=== PATIENT | male | born 1935 | race Caucasian/White ===

== ENCOUNTER 2022-09-01 05:35 | Inpatient (IN) ==
[2022-09-01] MEDS ORDERED: Buffered Lidocaine 1% SYRIN 1 ml INTRADERM ONE (06:00)
[2022-09-01] MEDS ORDERED: Famotidine IV 10 MG/ML 2 ml VIAL (20 mg) IV ONE (06:00)
[2022-09-01] MEDS ORDERED: Lactated Ringers 1000 ml BAG 1,000 ML IV SCH (06:00)
[2022-09-01] MEDS ORDERED: ceFAZolin 2 GM in NS PREMIX 2 GM/100 ML BAG IVPB ONE (06:28)
[2022-09-01] MEDS ORDERED: Famotidine IV 10 MG/ML 2 ml VIAL (20 mg) ONE (06:28)
[2022-09-01] MEDS ORDERED: Propofol 10 MG/ML 20 ML BTL ONE ×2 (06:32→08:05)
[2022-09-01] MEDS ORDERED: Lidocaine 2% PF 5 ML VIAL ONE ×2 (06:33→07:07)
[2022-09-01] MEDS ORDERED: fentaNYL 100 mcg/2 ml 50 MCG/ML VIAL ONE (06:33)
[2022-09-01 06:48] LABS: Rapid COVID-19 Molecular Undetected (Undetected)
[2022-09-01] MEDS ORDERED: Bupivacaine 0.5% SDV PF 30ML VIAL ONE (07:07)
[2022-09-01] MEDS ORDERED: Naloxone 0.4 mg VIAL 0.4 mg/ml 1 ml VIAL IV PRN (07:29)
[2022-09-01] MEDS ORDERED: fentaNYL 100 mcg/2 ml 50 MCG/ML VIAL IV PRN (07:29)
[2022-09-01] MEDS ORDERED: HYDROcodone/ACETAMIN 5/325 mg TAB PO PRN (07:29)
[2022-09-01] MEDS ORDERED: Ketamine HCL 50 mg/ml 10 ml VIAL (500 MG) ONE (07:46)
[2022-09-01] MEDS ORDERED: Ondansetron 4 mg VIAL 2 MG/ML 2 ml VIAL ONE (07:46)
[2022-09-01] MEDS ORDERED: Magnesium Hydroxide LIQ 30 ML UDC PO PRN (08:23)
[2022-09-01] MEDS ORDERED: Ondansetron ODT 4 mg TAB 4 MG TAB PO PRN (08:23)
[2022-09-01] MEDS ORDERED: Ondansetron 4 mg VIAL 2 MG/ML 2 ml VIAL IV PRN (08:23)
[2022-09-01] MEDS ORDERED: Lactulose 30 ml UDC PO PRN (08:23)
[2022-09-01] MEDS: Lactated Ringers 1000 ml BAG 1,000 ML IV SCH (10:34)
[2022-09-01] MEDS: Magnesium Hydroxide LIQ 30 ML UDC PO SCH ×2 (11:30→22:20)
[2022-09-01] MEDS: Vitamin THERAPEUTIC TAB PO SCH (11:30)
[2022-09-01] MEDS ORDERED: Dextrose 50% Syringe 50 ml 25 GM/50 ML SYRINGE IV PUSH PRN (11:31)
[2022-09-01] MEDS ORDERED: Vancomycin per Pharmacy 1 EA NOTE FOLLOW UP PRN (14:37)
[2022-09-01] MEDS ORDERED: Vancomycin 1,250 MG in NS 0.9% 250 ml 250 ML IVPB ONE (15:00)
[2022-09-01 15:16] LABS: Creatinine, Serum 1.18 mg/dL (0.67-1.17); eGFR CKD-EPI 60.1 (>60)
[2022-09-02] MEDS: Lactated Ringers 1000 ml BAG 1,000 ML IV SCH (02:06)
[2022-09-02 07:05] LABS: Hematocrit 31.2 % (38-53); Hemoglobin 10.5 g/dL (13.2-16.3); Mean Corpuscular Hemoglobin 30.9 pg (27-33); Mean Corpuscular Hgb Conc 33.8 g/dL (31-36); Mean Corpuscular Volume 91.6 fL (80-97); Mean Platelet Volume 7.9 fL (7.5-11.2); Platelet Count 240 10^3/uL (150-450); Red Blood Count 3.41 10^6/uL (4.06-5.63); Red Cell Distribution Width 13.8 % (12-17); White Blood Count 7.2 10^3/uL (3.6-10.2)
[2022-09-02 07:22] LABS: Calcium 8.5 mg/dL (8.6-10.3); Creatinine, Serum 1.05 mg/dL (0.67-1.17); Potassium 4.7 mmol/L (3.5-5.0); eGFR CKD-EPI 69.1 (>60)
[2022-09-02] MEDS: Vancomycin 1,250 MG in NS 0.9% 250 ml 250 ML IVPB SCH (08:45)
[2022-09-02] MEDS: Magnesium Hydroxide LIQ 30 ML UDC PO SCH ×2 (08:46→21:19)
[2022-09-02] MEDS: Vitamin THERAPEUTIC TAB PO SCH (08:47)
[2022-09-02] MEDS: Insulin ISOPH/REG 70/30 SUBCUT SCH ×2 (11:00→21:35)
[2022-09-03 07:07] LABS: Calcium 8.8 mg/dL (8.6-10.3); Creatinine, Serum 0.98 mg/dL (0.67-1.17); Potassium 4.7 mmol/L (3.5-5.0); eGFR CKD-EPI 75.1 (>60)
[2022-09-03] MEDS: Vitamin THERAPEUTIC TAB PO SCH (08:29)
[2022-09-03] MEDS: Insulin ISOPH/REG 70/30 SUBCUT SCH ×2 (08:30→21:31)
[2022-09-03] MEDS: Magnesium Hydroxide LIQ 30 ML UDC PO SCH ×2 (08:31→21:36)
[2022-09-03] MEDS: Vancomycin 1,250 MG in NS 0.9% 250 ml 250 ML IVPB SCH (08:34)
[2022-09-04] MEDS ORDERED: Vancomycin Trough Check NOTE FOLLOW UP ONE (08:30)
[2022-09-04 08:34] LABS: ABS Basophils 0.1 10^3/uL (0.0-0.1); ABS Eosinophils 0.3 10^3/uL (0.0-0.5); ABS Lymphocytes 1.3 10^3/uL (1.0-4.8); ABS Monocytes 0.9 10^3/uL (0.0-1.1); ABS Nucleated RBC 0.01 10^3/ul; Eosinophil % 4.5 %; Hematocrit 33.2 % (38-53); Hemoglobin 11.1 g/dL (13.2-16.3); Lymphocyte % 17.7 %; Mean Corpuscular Hemoglobin 30.2 pg (27-33); Mean Corpuscular Hgb Conc 33.6 g/dL (31-36); Mean Corpuscular Volume 89.8 fL (80-97); Mean Platelet Volume 7.5 fL (7.5-11.2); Nucleated Red Blood Cells % 0.1 /100 WBC (0.0-0.4); Platelet Count 255 10^3/uL (150-450); Red Blood Count 3.69 10^6/uL (4.06-5.63); Red Cell Distribution Width 13.8 % (12-17); White Blood Count 7.6 10^3/uL (3.6-10.2)
[2022-09-04] MEDS: Vitamin THERAPEUTIC TAB PO SCH (08:36)
[2022-09-04] MEDS: Insulin ISOPH/REG 70/30 SUBCUT SCH (08:40)
[2022-09-04] MEDS: Magnesium Hydroxide LIQ 30 ML UDC PO SCH (08:43)
[2022-09-04 08:53] LABS: Calcium 8.7 mg/dL (8.6-10.3); Creatinine, Serum 1.11 mg/dL (0.67-1.17); Potassium 4.5 mmol/L (3.5-5.0); eGFR CKD-EPI 64.7 (>60)
[2022-09-04 08:54] LABS: Creatinine, Serum 1.12 mg/dL (0.67-1.17)
[2022-09-04 09:07] LABS: Vancomycin Trough 11.4 mcg/mL
[2022-09-04 10:00] VITALS: BP 120/82
== END 2022-09-04 11:50 | disposition home or self-care (01) | DRG 908 ==
LOC: SSU 05:35 → OR 05:35 → OBSVTOIN 10:20 → INTOOBSV 10:20 → SSU 09-03 08:59
PROVIDERS: ADMIT Orthopaedic Surgery; ATTEND Orthopaedic Surgery

== ENCOUNTER 2022-10-22 05:37 | Inpatient (IN) ==
[2022-10-22] MEDS ORDERED: Buffered Lidocaine 1% SYRIN 1 ml INTRADERM ONE (06:00)
[2022-10-22 06:28] LABS: Rapid COVID-19 Molecular Undetected (Undetected)
[2022-10-22] MEDS ORDERED: ceFAZolin 2 GM in NS PREMIX 2 GM/100 ML BAG IVPB ONE (06:32)
[2022-10-22] MEDS: Lactated Ringers 1000 ml BAG 1,000 ML IV SCH ×2 (06:48→12:09)
[2022-10-22] MEDS ORDERED: Bupivacaine 0.5% SDV PF 30ML VIAL ONE (06:59)
[2022-10-22] MEDS ORDERED: Midazolam 2 mg/2 ml VIAL 1 mg/ml 2 ml VIAL (2 mg) ONE (07:17)
[2022-10-22] MEDS ORDERED: fentaNYL 100 mcg/2 ml 50 MCG/ML VIAL ONE ×5 (07:17→11:06)
[2022-10-22] MEDS ORDERED: Lidocaine 2% PF 5 ML VIAL ONE (07:20)
[2022-10-22] MEDS ORDERED: Propofol 10 MG/ML 20 ML BTL ONE (07:20)
[2022-10-22] MEDS ORDERED: Rocuronium 50 mg VIAL 10 mg/ml 5 ml VIAL (50 mg) ONE (08:05)
[2022-10-22] MEDS ORDERED: Ondansetron 4 mg VIAL 2 MG/ML 2 ml VIAL IV PRN ×2 (08:18→09:49)
[2022-10-22] MEDS ORDERED: Naloxone 0.4 mg VIAL 0.4 mg/ml 1 ml VIAL IV PRN (08:18)
[2022-10-22] MEDS ORDERED: HYDROmorphone 1 MG/1 ML SYRINGE IV PRN (08:18)
[2022-10-22] MEDS ORDERED: Prochlorperazine 5 mg/ml 2 ml VIAL (10 mg) IV PRN (08:18)
[2022-10-22] MEDS ORDERED: Levalbuterol 0.63MG/3ML NEB UNIT OF USE INH PRN (08:18)
[2022-10-22] MEDS ORDERED: HYDROmorphone 0.5 MG/0.5 ML SYRINGE ONE (09:00)
[2022-10-22] MEDS ORDERED: Ondansetron 4 mg VIAL 2 MG/ML 2 ml VIAL ONE (09:01)
[2022-10-22] MEDS ORDERED: Lactulose 30 ml UDC PO PRN (09:49)
[2022-10-22] MEDS ORDERED: Magnesium Hydroxide LIQ 30 ML UDC PO PRN (09:49)
[2022-10-22] MEDS ORDERED: Ondansetron ODT 4 mg TAB 4 MG TAB PO PRN (09:49)
[2022-10-22] MEDS ORDERED: Morphine 2 MG/ML SYRINGE IV PRN (09:49)
[2022-10-22] MEDS: fentaNYL 100 mcg/2 ml 50 MCG/ML VIAL IV PRN ×4 (10:11→10:40)
[2022-10-22] MEDS ORDERED: Dextrose 50% Syringe 50 ml 25 GM/50 ML SYRINGE IV PUSH PRN (12:09)
[2022-10-22 12:19] LABS: Hematocrit 27.4 % (38-53); Hemoglobin 9.1 g/dL (13.2-16.3); Platelet Count 203 10^3/uL (150-450)
[2022-10-22] MEDS: ceFAZolin 1 GM ADVAN 1 GM in NS 0.9% 50 ML 50 ML IVPB SCH (18:04)
[2022-10-22] MEDS: Magnesium Hydroxide LIQ 30 ML UDC PO SCH (20:22)
[2022-10-23] MEDS: Lactated Ringers 1000 ml BAG 1,000 ML IV SCH (01:41)
[2022-10-23] MEDS: ceFAZolin 1 GM ADVAN 1 GM in NS 0.9% 50 ML 50 ML IVPB SCH ×2 (01:41→09:28)
[2022-10-23 06:31] LABS: Calcium 8.2 mg/dL (8.6-10.3); Creatinine, Serum 1.06 mg/dL (0.67-1.17); eGFR CKD-EPI 68.3 (>60)
[2022-10-23] MEDS: Vitamin THERAPEUTIC TAB PO SCH (08:47)
[2022-10-23] MEDS: Magnesium Hydroxide LIQ 30 ML UDC PO SCH ×2 (08:50→21:20)
[2022-10-23 08:56] LABS: Hematocrit 26.5 % (38-53); Hemoglobin 8.9 g/dL (13.2-16.3)
[2022-10-23] MEDS: Enoxaparin 40 MG/0.4 ML SYR SUBCUT SCH (13:02)
[2022-10-24] MEDS: Vitamin THERAPEUTIC TAB PO SCH (09:02)
[2022-10-24] MEDS: Magnesium Hydroxide LIQ 30 ML UDC PO SCH ×2 (10:33→21:12)
[2022-10-24] MEDS: Enoxaparin 40 MG/0.4 ML SYR SUBCUT SCH (11:57)
[2022-10-25] MEDS: Vitamin THERAPEUTIC TAB PO SCH (08:17)
[2022-10-25] MEDS: Magnesium Hydroxide LIQ 30 ML UDC PO SCH ×2 (08:18→20:15)
[2022-10-25] MEDS: Enoxaparin 40 MG/0.4 ML SYR SUBCUT SCH (12:53)
[2022-10-25] MEDS: Calcium Carb (TUMS) 500 mg CHEW TAB PO PRN (23:21)
[2022-10-26] MEDS: Vitamin THERAPEUTIC TAB PO SCH (08:56)
[2022-10-26] MEDS: Magnesium Hydroxide LIQ 30 ML UDC PO SCH ×2 (08:58→20:02)
[2022-10-26 09:19] LABS: Hematocrit 27.1 % (38-53); Mean Platelet Volume 7.9 fL (7.5-11.2); Platelet Count 292 10^3/uL (150-450)
[2022-10-26 09:38] LABS: Calcium 8.9 mg/dL (8.6-10.3); Creatinine, Serum 1.28 mg/dL (0.67-1.17); Potassium 4.4 mmol/L (3.5-5.0); eGFR CKD-EPI 54.5 (>60)
[2022-10-26] MEDS ORDERED: NS 0.9% 500 ml BAG 500 ML IV ONE (10:37)
[2022-10-26] MEDS: Enoxaparin 40 MG/0.4 ML SYR SUBCUT SCH (13:15)
[2022-10-26 17:17] LABS: Urine Creatinine Concentration 104.56 mg/dL (20.00-370.00)
[2022-10-27 06:47] LABS: Calcium 8.1 mg/dL (8.6-10.3); Creatinine, Serum 1.15 mg/dL (0.67-1.17); Potassium 4.3 mmol/L (3.5-5.0)
[2022-10-27] MEDS: Lactated Ringers 1000 ml BAG 1,000 ML IV SCH ×2 (07:10→07:11)
[2022-10-27] MEDS: Vitamin THERAPEUTIC TAB PO SCH (09:07)
[2022-10-27 11:13] LABS: ABS Eosinophils 0.2 10^3/uL (0.0-0.5); ABS Lymphocytes 0.9 10^3/uL (1.0-4.8); ABS Monocytes 0.7 10^3/uL (0.0-1.1); ABS Neutrophils 6.4 10^3/uL (1.5-7.6); ABS Nucleated RBC 0.01 10^3/ul; Eosinophil % 2.9 %; Hematocrit 26.8 % (38-53); Hemoglobin 9.1 g/dL (13.2-16.3); Lymphocyte % 10.7 %; Mean Corpuscular Hemoglobin 30.4 pg (27-33); Mean Corpuscular Volume 89.4 fL (80-97); Mean Platelet Volume 7.7 fL (7.5-11.2); Nucleated Red Blood Cells % 0.1 /100 WBC (0.0-0.4); Platelet Count 314 10^3/uL (150-450); Red Cell Distribution Width 16.3 % (12-17); White Blood Count 8.3 10^3/uL (3.6-10.2)
[2022-10-27] MEDS: Enoxaparin 40 MG/0.4 ML SYR SUBCUT SCH (13:01)
[2022-10-27] MEDS: Calcium Carb (TUMS) 500 mg CHEW TAB PO PRN (16:45)
[2022-10-28] MEDS: Vitamin THERAPEUTIC TAB PO SCH (08:31)
[2022-10-28 08:47] LABS: ABS Eosinophils 0.3 10^3/uL (0.0-0.5); ABS Lymphocytes 1.3 10^3/uL (1.0-4.8); ABS Monocytes 0.7 10^3/uL (0.0-1.1); ABS Neutrophils 4.9 10^3/uL (1.5-7.6); Eosinophil % 4.8 %; Hematocrit 26.5 % (38-53); Hemoglobin 8.9 g/dL (13.2-16.3); Lymphocyte % 18.2 %; Mean Corpuscular Hemoglobin 29.9 pg (27-33); Mean Corpuscular Hgb Conc 33.5 g/dL (31-36); Mean Corpuscular Volume 89.4 fL (80-97); Mean Platelet Volume 7.4 fL (7.5-11.2); Platelet Count 321 10^3/uL (150-450); Red Blood Count 2.96 10^6/uL (4.06-5.63); Red Cell Distribution Width 15.9 % (12-17); White Blood Count 7.3 10^3/uL (3.6-10.2)
[2022-10-28 09:02] LABS: C Reactive Protein 131.09 mg/L (<8.01); Calcium 8.9 mg/dL (8.6-10.3); Creatinine, Serum 1.08 mg/dL (0.67-1.17); Potassium 4.5 mmol/L (3.5-5.0); eGFR CKD-EPI 66.8 (>60)
[2022-10-28 10:09] VITALS: BP 121/52
[2022-10-28] MEDS: Enoxaparin 40 MG/0.4 ML SYR SUBCUT SCH (13:04)
== END 2022-10-28 13:45 | DRG 475 ==
LOC: AA 05:37 → SSU 09:49
PROVIDERS: ADMIT Orthopaedic Surgery; ATTEND Orthopaedic Surgery
PROC: O.ORAMP (2022-10-22 07:45)

== ENCOUNTER 2023-04-06 08:48 | Inpatient (IN) ==
[~2023-04-06 08:48] MED LIST: Buffered Lidocaine 1% SYRIN 1 ml INTRADERM ONE; Lactated Ringers 1000 ml BAG 1,000 ML IV SCH; Naloxone 0.4 mg VIAL 0.4 mg/ml 1 ml VIAL IV PRN
[2023-04-06] MEDS ORDERED: ceFAZolin 2 GM PREMIX 2 GM/50 ML BAG ONE (09:19)
[2023-04-06] MEDS ORDERED: Dexamethasone IV 4 MG/ML VIAL 1 ml VIAL ONE (09:28)
[2023-04-06] MEDS ORDERED: Lidocaine 2% PF 5 ML VIAL ONE (09:28)
[2023-04-06] MEDS ORDERED: Ondansetron 4 mg VIAL 2 MG/ML 2 ml VIAL ONE (09:28)
[2023-04-06] MEDS ORDERED: fentaNYL 100 mcg/2 ml 50 MCG/ML VIAL ONE ×2 (09:28→13:19)
[2023-04-06] MEDS ORDERED: Propofol 10 MG/ML 20 ML BTL ONE (09:28)
[2023-04-06 09:34] LABS: Rapid COVID-19 Molecular Undetected (Undetected)
[2023-04-06] MEDS ORDERED: Magnesium Hydroxide LIQ 30 ML UDC PO PRN (11:25)
[2023-04-06] MEDS ORDERED: Lactulose 30 ml UDC PO PRN (11:25)
[2023-04-06] MEDS ORDERED: Ondansetron ODT 4 mg TAB 4 MG TAB PO PRN (11:25)
[2023-04-06] MEDS ORDERED: Morphine 2 MG/ML SYRINGE IV PRN (11:25)
[2023-04-06] MEDS ORDERED: Ondansetron 4 mg VIAL 2 MG/ML 2 ml VIAL IV PRN (11:25)
[2023-04-06] MEDS ORDERED: Acetaminophen IV 1 GM/100ML 1,000 MG/100 ML BAG IV ONE (11:56)
[2023-04-06] MEDS ORDERED: KETAMINE HCL 10 MG/ML 20 ml VIAL (200 MG) ONE (12:06)
[2023-04-06] MEDS ORDERED: Bupivacaine 0.5% SDV PF 30ML VIAL ONE (12:07)
[2023-04-06] MEDS ORDERED: HYDROmorphone 0.5 MG/0.5 ML SYRINGE ONE (12:22)
[2023-04-06] MEDS: fentaNYL 100 mcg/2 ml 50 MCG/ML VIAL IV PRN ×4 (13:20→13:57)
[2023-04-06] MEDS ORDERED: HYDROmorphone 1 MG/1 ML SYRINGE ONE (14:22)
[2023-04-06] MEDS ORDERED: HYDROmorphone 1 MG/1 ML SYRINGE IV PRN (14:23)
[2023-04-06] MEDS ORDERED: Naloxone 0.4 mg VIAL 0.4 mg/ml 1 ml VIAL IV PRN (14:23)
[2023-04-06] MEDS: Lactated Ringers 1000 ml BAG 1,000 ML IV SCH (15:00)
[2023-04-06] MEDS ORDERED: Dextrose 50% Syringe 50 ml 25 GM/50 ML SYRINGE IV PUSH PRN (15:42)
[2023-04-06] MEDS: ceFAZolin 1 GM ADVAN 1 GM in NS 0.9% 50 ML 50 ML IVPB SCH (20:38)
[2023-04-06] MEDS: Simvastatin 20 mg TAB (NF) PO SCH (20:41)
[2023-04-06] MEDS: Magnesium Hydroxide LIQ 30 ML UDC PO SCH (20:41)
[2023-04-07] MEDS: Lactated Ringers 1000 ml BAG 1,000 ML IV SCH (00:56)
[2023-04-07] MEDS: ceFAZolin 1 GM ADVAN 1 GM in NS 0.9% 50 ML 50 ML IVPB SCH ×2 (04:02→12:13)
[2023-04-07 08:11] LABS: Platelet Count 435 10^3/uL (150-450)
[2023-04-07] MEDS: Magnesium Hydroxide LIQ 30 ML UDC PO SCH ×2 (08:22→21:03)
[2023-04-07] MEDS: Vitamin THERAPEUTIC TAB PO SCH (08:22)
[2023-04-07 08:30] LABS: Calcium 9.1 mg/dL (8.6-10.3); Creatinine, Serum 1.71 mg/dL (0.67-1.17); Potassium 5.4 mmol/L (3.5-5.0); eGFR CKD-EPI 38.5 (>60)
[2023-04-07] MEDS ORDERED: Petroleum Jelly 1.75 Oz (small jar) TOPICAL ONE (08:46)
[2023-04-07 08:54] LABS: Hematocrit 30.8 % (38-53); Hemoglobin 9.9 g/dL (13.2-16.3); Mean Platelet Volume 7.3 fL (7.5-11.2)
[2023-04-07] MEDS ORDERED: Lactated Ringers 1000 ml BAG 1,000 ML IV SCH (10:00)
[2023-04-07 10:03] LABS: Magnesium 2.2 mg/dL (1.9-2.7)
[2023-04-07] MEDS: NS 0.9% 1000 ml BAG 1,000 ML IV SCH ×2 (10:15→20:42)
[2023-04-07] MEDS ORDERED: Metformin ER 750 mg TAB (NF) PO SCH (11:00)
[2023-04-07] MEDS ORDERED: SODIUM ZIRCONIUM CYCLOSILICATE 10 GM PACKET PO ONE (11:18)
[2023-04-07 17:09] LABS: Albumin 3.3 g/dL (3.2-5.2); Albumin/Globulin Ratio 0.9 (1-3); Calcium 8.8 mg/dL (8.6-10.3); Creatinine, Serum 1.59 mg/dL (0.67-1.17); Globulin 3.7 g/dL (2-4); Potassium 5.3 mmol/L (3.5-5.0); Total Bilirubin 0.2 mg/dL (0.2-1.0)
[2023-04-07] MEDS ORDERED: SODIUM ZIRCONIUM CYCLOSILICATE 10 GM PACKET PO SCH (21:00)
[2023-04-07] MEDS: Simvastatin 20 mg TAB (NF) PO SCH (21:04)
[2023-04-08] MEDS: NS 0.9% 1000 ml BAG 1,000 ML IV SCH ×2 (06:28→17:35)
[2023-04-08 06:42] LABS: Platelet Count 415 10^3/uL (150-450)
[2023-04-08 06:54] LABS: Hematocrit 31.4 % (38-53); Hemoglobin 10.2 g/dL (13.2-16.3); Mean Platelet Volume 7.5 fL (7.5-11.2)
[2023-04-08 06:59] LABS: Albumin 3.4 g/dL (3.2-5.2); Albumin/Globulin Ratio 0.9 (1-3); Calcium 8.7 mg/dL (8.6-10.3); Creatinine, Serum 1.32 mg/dL (0.67-1.17); Globulin 3.8 g/dL (2-4); Total Bilirubin 0.3 mg/dL (0.2-1.0); Total Protein 7.2 g/dL (6.4-8.9); eGFR CKD-EPI 52.5 (>60)
[2023-04-08] MEDS: Vitamin THERAPEUTIC TAB PO SCH (09:18)
[2023-04-08] MEDS: Magnesium Hydroxide LIQ 30 ML UDC PO SCH ×3 (09:19→23:45)
[2023-04-08 15:23] LABS: Mean Corpuscular Hemoglobin 26.6 pg (27-33); Mean Corpuscular Hgb Conc 32.5 g/dL (31-36); Mean Corpuscular Volume 81.9 fL (80-97); Red Blood Count 3.83 10^6/uL (4.06-5.63); Red Cell Distribution Width 18.1 % (12-17); White Blood Count 10.2 10^3/uL (3.6-10.2)
[2023-04-08] MEDS: Simvastatin 20 mg TAB (NF) PO SCH (20:48)
[2023-04-09] MEDS: NS 0.9% 1000 ml BAG 1,000 ML IV SCH (03:33)
[2023-04-09 06:01] LABS: Platelet Count 415 10^3/uL (150-450)
[2023-04-09 06:22] LABS: Hemoglobin 10.3 g/dL (13.2-16.3); Mean Platelet Volume 7.3 fL (7.5-11.2)
[2023-04-09 06:46] LABS: Albumin 3.3 g/dL (3.2-5.2); Albumin/Globulin Ratio 0.8 (1-3); Calcium 8.3 mg/dL (8.6-10.3); Creatinine, Serum 1.13 mg/dL (0.67-1.17); Potassium 4.5 mmol/L (3.5-5.0); Total Bilirubin 0.3 mg/dL (0.2-1.0); Total Protein 7.3 g/dL (6.4-8.9); eGFR CKD-EPI 63.3 (>60)
[2023-04-09] MEDS: Vitamin THERAPEUTIC TAB PO SCH (08:46)
[2023-04-09] MEDS: Magnesium Hydroxide LIQ 30 ML UDC PO SCH (08:48)
[2023-04-09 10:16] VITALS: BP 142/82
== END 2023-04-09 10:45 | DRG 240 ==
LOC: AA 08:48 → SSU 15:27
PROVIDERS: ADMIT Orthopaedic Surgery; ATTEND Orthopaedic Surgery
PROC: O.ORAMP (2023-04-06 11:00)

== ENCOUNTER 2023-04-09 08:14 | Inpatient (IN) ==
[2023-04-09] MEDS ORDERED: Dextrose 50% Syringe 50 ml 25 GM/50 ML SYRINGE IV PUSH PRN (11:37)
[2023-04-09] MEDS: Calcium Carb (TUMS) 500 mg CHEW TAB PO PRN (18:27)
[2023-04-10 06:53] LABS: ABS Basophils 0.1 10^3/uL (0.0-0.1); ABS Eosinophils 0.3 10^3/uL (0.0-0.5); ABS Lymphocytes 1.5 10^3/uL (1.0-4.8); ABS Monocytes 0.8 10^3/uL (0.0-1.1); Eosinophil % 3.1 %; Hematocrit 32.3 % (38-53); Hemoglobin 10.6 g/dL (13.2-16.3); Lymphocyte % 14.2 %; Mean Corpuscular Hemoglobin 26.7 pg (27-33); Mean Corpuscular Hgb Conc 32.8 g/dL (31-36); Mean Corpuscular Volume 81.4 fL (80-97); Platelet Count 406 10^3/uL (150-450); Red Blood Count 3.96 10^6/uL (4.06-5.63); Red Cell Distribution Width 17.7 % (12-17); White Blood Count 10.7 10^3/uL (3.6-10.2)
[2023-04-10 07:08] LABS: Albumin 3.4 g/dL (3.2-5.2); Albumin/Globulin Ratio 0.9 (1-3); Calcium 9.3 mg/dL (8.6-10.3); Creatinine, Serum 1.01 mg/dL (0.67-1.17); Globulin 3.9 g/dL (2-4); Potassium 4.8 mmol/L (3.5-5.0); Total Bilirubin 0.3 mg/dL (0.2-1.0); Total Protein 7.3 g/dL (6.4-8.9); eGFR CKD-EPI 72.4 (>60)
[2023-04-10] MEDS: Multivitamins/Minerals TAB PO SCH (07:40)
[2023-04-11] MEDS: Insulin GLARGINE 100 un/ml 10 ml VIAL SUBCUT SCH (21:28)
[2023-04-12 06:36] LABS: ABS Basophils 0.1 10^3/uL (0.0-0.1); ABS Eosinophils 0.4 10^3/uL (0.0-0.5); ABS Lymphocytes 1.8 10^3/uL (1.0-4.8); ABS Monocytes 0.7 10^3/uL (0.0-1.1); Eosinophil % 4.3 %; Hematocrit 33.3 % (38-53); Hemoglobin 10.9 g/dL (13.2-16.3); Lymphocyte % 20.2 %; Mean Corpuscular Hemoglobin 26.7 pg (27-33); Mean Corpuscular Hgb Conc 32.7 g/dL (31-36); Mean Corpuscular Volume 81.5 fL (80-97); Mean Platelet Volume 7.2 fL (7.5-11.2); Platelet Count 469 10^3/uL (150-450); Red Blood Count 4.08 10^6/uL (4.06-5.63); Red Cell Distribution Width 17.8 % (12-17)
[2023-04-12 06:53] LABS: Albumin 3.4 g/dL (3.2-5.2); Albumin/Globulin Ratio 0.9 (1-3); Calcium 9.5 mg/dL (8.6-10.3); Creatinine, Serum 1.18 mg/dL (0.67-1.17); Total Bilirubin 0.3 mg/dL (0.2-1.0); Total Protein 7.4 g/dL (6.4-8.9); eGFR CKD-EPI 60.1 (>60)
[2023-04-15] MEDS: Insulin GLARGINE 100 un/ml 10 ml VIAL SUBCUT SCH (20:54)
[2023-04-16 06:55] LABS: ABS Basophils 0.1 10^3/uL (0.0-0.1); ABS Eosinophils 0.3 10^3/uL (0.0-0.5); ABS Lymphocytes 2.2 10^3/uL (1.0-4.8); ABS Monocytes 0.9 10^3/uL (0.0-1.1); ABS Neutrophils 5.8 10^3/uL (1.5-7.6); Eosinophil % 2.8 %; Hematocrit 32.6 % (38-53); Hemoglobin 10.5 g/dL (13.2-16.3); Lymphocyte % 23.9 %; Mean Corpuscular Hemoglobin 26.6 pg (27-33); Mean Corpuscular Hgb Conc 32.1 g/dL (31-36); Mean Platelet Volume 7.4 fL (7.5-11.2); Platelet Count 394 10^3/uL (150-450); Red Blood Count 3.93 10^6/uL (4.06-5.63); Red Cell Distribution Width 17.9 % (12-17); White Blood Count 9.2 10^3/uL (3.6-10.2)
[2023-04-16 07:07] LABS: Calcium 9.7 mg/dL (8.6-10.3); Creatinine, Serum 1.18 mg/dL (0.67-1.17); Potassium 5.8 mmol/L (3.5-5.0); eGFR CKD-EPI 60.1 (>60)
[2023-04-17] MEDS: Sodium Polystyrene ORAL.SUSP 15 GM/60 ML BTL PO ONE (01:44)
[2023-04-17 06:22] LABS: Calcium 9.7 mg/dL (8.6-10.3); Creatinine, Serum 1.17 mg/dL (0.67-1.17); Potassium 5.3 mmol/L (3.5-5.0); eGFR CKD-EPI 60.7 (>60)
[2023-04-17] MEDS: oxyCODONE SR 10 mg TAB PO SCH (22:29)
[2023-04-18] MEDS: Hemorrhoidal OINT 1 TUBE PR PRN (19:59)
[2023-04-18] MEDS: Insulin GLARGINE 100 un/ml 10 ml VIAL SUBCUT SCH (22:29)
[2023-04-19 06:21] LABS: ABS Eosinophils 0.3 10^3/uL (0.0-0.5); ABS Lymphocytes 1.8 10^3/uL (1.0-4.8); ABS Monocytes 0.7 10^3/uL (0.0-1.1); Eosinophil % 3.2 %; Hematocrit 31.8 % (38-53); Hemoglobin 10.3 g/dL (13.2-16.3); Lymphocyte % 22.9 %; Mean Corpuscular Hemoglobin 26.8 pg (27-33); Mean Corpuscular Hgb Conc 32.5 g/dL (31-36); Mean Corpuscular Volume 82.4 fL (80-97); Mean Platelet Volume 7.3 fL (7.5-11.2); Platelet Count 391 10^3/uL (150-450); Red Blood Count 3.86 10^6/uL (4.06-5.63); Red Cell Distribution Width 17.6 % (12-17); White Blood Count 7.8 10^3/uL (3.6-10.2)
[2023-04-19 06:36] LABS: Albumin 3.5 g/dL (3.2-5.2); Calcium 10.3 mg/dL (8.6-10.3); Creatinine, Serum 1.44 mg/dL (0.67-1.17); Globulin 3.6 g/dL (2-4); Potassium 5.3 mmol/L (3.5-5.0); Total Bilirubin 0.3 mg/dL (0.2-1.0); Total Protein 7.1 g/dL (6.4-8.9); eGFR CKD-EPI 47.3 (>60)
[2023-04-19] MEDS: Magnesium Hydroxide LIQ 30 ML UDC PO PRN (11:28)
[2023-04-19] MEDS: Senna TAB 8.6 mg TAB PO PRN (20:20)
[2023-04-21 07:57] LABS: ABS Basophils 0.1 10^3/uL (0.0-0.1); ABS Eosinophils 0.2 10^3/uL (0.0-0.5); ABS Lymphocytes 1.5 10^3/uL (1.0-4.8); ABS Monocytes 0.7 10^3/uL (0.0-1.1); ABS Neutrophils 4.9 10^3/uL (1.5-7.6); ABS Nucleated RBC 0.01 10^3/ul; Eosinophil % 2.7 %; Hematocrit 28.4 % (38-53); Hemoglobin 9.4 g/dL (13.2-16.3); Lymphocyte % 20.4 %; Mean Corpuscular Hemoglobin 27.2 pg (27-33); Mean Corpuscular Volume 82.5 fL (80-97); Mean Platelet Volume 7.6 fL (7.5-11.2); Nucleated Red Blood Cells % 0.1 %/100WBC (0.0-0.8); Platelet Count 381 10^3/uL (150-450); Red Blood Count 3.44 10^6/uL (4.06-5.63); Red Cell Distribution Width 17.9 % (12-17); White Blood Count 7.3 10^3/uL (3.6-10.2)
[2023-04-21 08:27] LABS: Calcium 9.5 mg/dL (8.6-10.3); Creatinine, Serum 1.32 mg/dL (0.67-1.17); eGFR CKD-EPI 52.5 (>60)
[2023-04-26 06:36] LABS: ABS Basophils 0.1 10^3/uL (0.0-0.1); ABS Eosinophils 0.2 10^3/uL (0.0-0.5); ABS Lymphocytes 1.6 10^3/uL (1.0-4.8); ABS Monocytes 0.7 10^3/uL (0.0-1.1); ABS Neutrophils 5.3 10^3/uL (1.5-7.6); ABS Nucleated RBC 0.01 10^3/ul; Eosinophil % 2.7 %; Hematocrit 29.6 % (38-53); Hemoglobin 9.6 g/dL (13.2-16.3); Lymphocyte % 19.9 %; Mean Corpuscular Hemoglobin 27.2 pg (27-33); Mean Corpuscular Hgb Conc 32.6 g/dL (31-36); Mean Corpuscular Volume 83.4 fL (80-97); Nucleated Red Blood Cells % 0.1 %/100WBC (0.0-0.8); Platelet Count 355 10^3/uL (150-450); Red Blood Count 3.55 10^6/uL (4.06-5.63); Red Cell Distribution Width 18.1 % (12-17); White Blood Count 7.9 10^3/uL (3.6-10.2)
[2023-04-26 06:54] LABS: Albumin 3.4 g/dL (3.2-5.2); Calcium 9.2 mg/dL (8.6-10.3); Creatinine, Serum 1.31 mg/dL (0.67-1.17); Globulin 3.4 g/dL (2-4); Potassium 4.8 mmol/L (3.5-5.0); Total Bilirubin 0.3 mg/dL (0.2-1.0); Total Protein 6.8 g/dL (6.4-8.9)
[2023-04-27 06:22] VITALS: BP 144/65
[2023-04-27 10:31] LABS: Rapid COVID-19 Molecular Undetected (Undetected)
== END 2023-04-27 15:52 | DRG 300 ==
LOC: PMRU 12:03
PROVIDERS: ADMIT Physical Medicine & Rehabilitation; ATTEND Physical Medicine & Rehabilitation

== ENCOUNTER 2023-06-15 05:41 | Inpatient (IN) ==
[~2023-06-15 05:41] MED LIST changes: -Buffered Lidocaine 1% SYRIN 1 ml INTRADERM ONE; -Lactated Ringers 1000 ml BAG 1,000 ML IV SCH; +Metoclopramide 5 MG/ML VIAL (10 mg) IV PRN; +NS 0.45% 1000 ml BAG 1,000 ML IV SCH; +Ondansetron 4 mg VIAL 2 MG/ML 2 ml VIAL IV PRN
[2023-06-15] MEDS ORDERED: Scopolamine 1 mg/72hr PATCH ONE (06:03)
[2023-06-15] MEDS ORDERED: ceFAZolin 2 GM PREMIX 2 GM/50 ML BAG ONE (06:04)
[2023-06-15] MEDS: Scopolamine 1 mg/72hr PATCH TRANSDERM ONE (06:37)
[2023-06-15 07:03] LABS: Rapid COVID-19 Molecular Undetected (Undetected)
[2023-06-15] MEDS ORDERED: Bupivacaine 0.5% SDV PF 30ML VIAL ONE (07:07)
[2023-06-15] MEDS ORDERED: Dexamethasone IV 4 MG/ML VIAL 1 ml VIAL ONE (07:47)
[2023-06-15] MEDS ORDERED: Ondansetron 4 mg VIAL 2 MG/ML 2 ml VIAL ONE (07:47)
[2023-06-15] MEDS ORDERED: Glycopyrrolate IV 0.2 MG/ML 1 ML VIAL ONE (07:47)
[2023-06-15] MEDS ORDERED: Propofol 10 MG/ML 20 ML BTL ONE (07:47)
[2023-06-15] MEDS ORDERED: fentaNYL 100 mcg/2 ml 50 MCG/ML VIAL ONE ×3 (07:47→09:16)
[2023-06-15] MEDS ORDERED: Phenylephrine IV 10 MG/ML 1 ml VIAL ONE (07:52)
[2023-06-15] MEDS ORDERED: Ondansetron ODT 4 mg TAB 4 MG TAB PO PRN (09:03)
[2023-06-15] MEDS ORDERED: Morphine 2 MG/ML SYRINGE IV PRN (09:03)
[2023-06-15] MEDS ORDERED: Lactulose 30 ml UDC PO PRN (09:03)
[2023-06-15] MEDS ORDERED: Magnesium Hydroxide LIQ 30 ML UDC PO PRN (09:03)
[2023-06-15] MEDS ORDERED: Ondansetron 4 mg VIAL 2 MG/ML 2 ml VIAL IV PRN (09:03)
[2023-06-15] MEDS ORDERED: Senna TAB 8.6 mg TAB PO PRN (09:13)
[2023-06-15] MEDS ORDERED: Calcium Carb (TUMS) 500 mg CHEW TAB PO PRN (09:13)
[2023-06-15] MEDS: fentaNYL 100 mcg/2 ml 50 MCG/ML VIAL IV PRN (09:17)
[2023-06-15] MEDS ORDERED: Dextrose 50% Syringe 50 ml 25 GM/50 ML SYRINGE IV PUSH PRN (11:24)
[2023-06-15] MEDS: Lactated Ringers 1000 ml BAG 1,000 ML IV SCH ×2 (12:40→12:58)
[2023-06-15] MEDS: Insulin GLARGINE 100 un/ml 10 ml VIAL SUBCUT ONE (12:59)
[2023-06-15] MEDS: Buffered Lidocaine 1% SYRIN 1 ml INTRADERM ONE (13:12)
[2023-06-15] MEDS: Acetaminophen IV 1 GM/100ML 1,000 MG/100 ML BAG IV ONE (13:12)
[2023-06-15] MEDS: ceFAZolin 1 GM ADVAN 1 GM in NS 0.9% 50 ML 50 ML IVPB SCH (15:49)
[2023-06-15] MEDS: Magnesium Hydroxide LIQ 30 ML UDC PO SCH (21:53)
[2023-06-16 06:04] LABS: Hematocrit 33.3 % (38-53); Hemoglobin 10.9 g/dL (13.2-16.3); Mean Platelet Volume 7.8 fL (7.5-11.2); Platelet Count 259 10^3/uL (150-450)
[2023-06-16 07:42] LABS: Calcium 9.5 mg/dL (8.6-10.3); Creatinine, Serum 1.63 mg/dL (0.67-1.17); Potassium 5.5 mmol/L (3.5-5.0); eGFR CKD-EPI 40.5 (>60)
[2023-06-16] MEDS: Vitamin THERAPEUTIC TAB PO SCH (08:46)
[2023-06-16] MEDS: Multivitamins/Minerals TAB PO SCH (08:46)
[2023-06-16] MEDS: Cholecalciferol (VIT D3) 1,000 unit TAB PO SCH (08:51)
[2023-06-16] MEDS: PTO: Metformin ER 750 mg TAB (NF) PO SCH (10:41)
[2023-06-16] MEDS ORDERED: ceFAZolin 2 GM in NS PREMIX 2 GM/100 ML BAG IVPB SCH (16:00)
[2023-06-16] MEDS: ceFAZolin 2 GM PREMIX 2 GM/50 ML BAG IV SCH (16:19)
[2023-06-17 06:05] LABS: Hematocrit 32.3 % (38-53); Hemoglobin 10.6 g/dL (13.2-16.3); Mean Platelet Volume 7.9 fL (7.5-11.2); Platelet Count 231 10^3/uL (150-450)
[2023-06-17 10:11] VITALS: BP 129/59
== END 2023-06-17 13:40 | disposition home or self-care (01) | DRG 493 ==
LOC: AA 05:41 → SSU 09:04
PROVIDERS: ADMIT Orthopaedic Surgery; ATTEND Orthopaedic Surgery

== ENCOUNTER 2023-08-10 05:52 | Observation (INO) ==
[2023-08-10] MEDS ORDERED: Scopolamine 1 mg/72hr PATCH ONE (06:28)
[2023-08-10] MEDS ORDERED: Tranexamic Acid 1 GM/100ML BAG 0 MG/0 ML BAG IV ONE (06:28)
[2023-08-10] MEDS ORDERED: ceFAZolin 2 GM in NS PREMIX 2 GM/100 ML BAG IVPB ONE (06:28)
[2023-08-10] MEDS ORDERED: Bupivacaine 0.5% SDV PF 30ML VIAL ONE (06:55)
[2023-08-10] MEDS ORDERED: Vancomycin 1,000 MG VIAL ONE (06:56)
[2023-08-10] MEDS ORDERED: Propofol 10 MG/ML 20 ML BTL ONE ×2 (06:59→07:32)
[2023-08-10] MEDS ORDERED: Lidocaine 2% PF 5 ML VIAL ONE (06:59)
[2023-08-10] MEDS ORDERED: Sterile Water for Inj 10 ML ONE (07:03)
[2023-08-10] MEDS ORDERED: fentaNYL 100 mcg/2 ml 50 MCG/ML VIAL ONE ×2 (07:04→08:54)
[2023-08-10] MEDS ORDERED: fentaNYL 250 mcg/5 ml 50 MCG/ML 5 ml VIAL (250 MCG) ONE (07:05)
[2023-08-10] MEDS ORDERED: Rocuronium 50 mg VIAL 10 mg/ml 5 ml VIAL (50 mg) ONE (07:06)
[2023-08-10] MEDS ORDERED: KETAMINE HCL 10 MG/ML 20 ml VIAL (200 MG) ONE (07:32)
[2023-08-10] MEDS ORDERED: Lidocaine 1% VIAL 10 MG/ML 30 ML VIAL ONE (07:43)
[2023-08-10] MEDS ORDERED: Ondansetron 4 mg VIAL 2 MG/ML 2 ml VIAL ONE (08:04)
[2023-08-10] MEDS: fentaNYL 100 mcg/2 ml 50 MCG/ML VIAL IV PRN (08:57)
[2023-08-10] MEDS ORDERED: Magnesium Hydroxide LIQ 30 ML UDC PO PRN (11:22)
[2023-08-10] MEDS ORDERED: Morphine 2 MG/ML SYRINGE IV PRN (11:22)
[2023-08-10] MEDS ORDERED: Lactulose 30 ml UDC PO PRN (11:22)
[2023-08-10] MEDS ORDERED: Calcium Carb (TUMS) 500 mg CHEW TAB PO PRN (11:22)
[2023-08-10] MEDS ORDERED: Ondansetron 4 mg VIAL 2 MG/ML 2 ml VIAL IV PRN (11:22)
[2023-08-10] MEDS ORDERED: Ondansetron ODT 4 mg TAB 4 MG TAB PO PRN (11:22)
[2023-08-10 11:29] VITALS: BP 131/58
[2023-08-10] MEDS: Lactated Ringers 1000 ml BAG 1,000 ML IV SCH ×2 (11:54→12:06)
[2023-08-10] MEDS ORDERED: Dextrose 50% Syringe 50 ml 25 GM/50 ML SYRINGE IV PUSH PRN (12:48)
[2023-08-10] MEDS: Scopolamine 1 mg/72hr PATCH TRANSDERM ONE (14:07)
[2023-08-10] MEDS: Acetaminophen IV 1 GM/100ML 1,000 MG/100 ML BAG IV ONE (14:07)
[2023-08-10] MEDS: Buffered Lidocaine 1% SYRIN 1 ml INTRADERM ONE (14:07)
[2023-08-10] MEDS ORDERED: Magnesium Hydroxide LIQ 30 ML UDC PO SCH (21:00)
[2023-08-10] MEDS ORDERED: Metformin ER 750 mg TAB (NF) PO SCH (21:00)
[2023-08-11] MEDS ORDERED: Cholecalciferol (VIT D3) 1,000 unit TAB PO SCH (09:00)
[2023-08-11] MEDS ORDERED: Multivitamins/Minerals TAB PO SCH (09:00)
[2023-08-11] MEDS ORDERED: Vitamin THERAPEUTIC TAB PO SCH (09:00)
== END 2023-08-10 14:45 | disposition home or self-care (01) ==
LOC: SSU 05:52 → OR 05:52 → EDSTATUS 10:15
PROVIDERS: ADMIT Orthopaedic Surgery; ATTEND Orthopaedic Surgery

== ENCOUNTER 2024-03-15 08:44 | Inpatient (IN) ==
[2024-03-15 09:24] LABS: Venous Bicarbonate HCO3 13.8 mmol/L (24-28)
[2024-03-15] MEDS: methylPREDNISolone SOD SUCC 125 mg 2 ML VIAL IV ONE (09:30)
[2024-03-15] MEDS: Cefepime 2 GM in Dextrose 2 GM/50 ML BAG IV ONE (09:30)
[2024-03-15] MEDS: Acetaminophen IV 1 GM/100ML 1,000 MG/100 ML BAG IV ONE (09:30)
[2024-03-15] MEDS: LACTATED RINGERS SEPSIS IV ONE (09:33)
[2024-03-15] MEDS: Albuterol/Ipratropium NEB.SOL (2.5/0.5 MG) 3 ML NEB.SOLN INH ONE (09:34)
[2024-03-15 09:41] LABS: Activated Partial Thrombo Time 33.1 seconds (26.0-38.0); INR 1.12 (0.85-1.14)
[2024-03-15 09:52] LABS: C Reactive Protein 398.33 mg/L (<8.01); Calcium 8.7 mg/dL (8.6-10.3); Creatinine, Serum 2.49 mg/dL (0.67-1.17); Potassium 4.5 mmol/L (3.5-5.0); eGFR CKD-EPI 24.4 (>60)
[2024-03-15 09:53] LABS: Albumin 3.5 g/dL (3.5-5.7); Albumin/Globulin Ratio 1.2 (1-3); Total Bilirubin 0.4 mg/dL (0.2-1.0); Total Protein 6.5 g/dL (6.4-8.9)
[2024-03-15 10:03] LABS: ABS Lymphocytes 0.1 10^3/uL (1.0-4.8); ABS Monocytes 0.4 10^3/uL (0.0-1.1); ABS Neutrophils 4.9 10^3/uL (1.5-7.6); ABS Nucleated RBC 0.01 10^3/ul; Eosinophil % 0.2 %; Hematocrit 37.5 % (38-53); Hemoglobin 11.9 g/dL (13.2-16.3); Hypochromasia 1+; Large Platelets Present; Lymphocyte % 2.6 %; Mean Corpuscular Hemoglobin 26.3 pg (27-33); Mean Corpuscular Hgb Conc 31.8 g/dL (31-36); Mean Corpuscular Volume 82.7 fL (80-97); Mean Platelet Volume 9.1 fL (7.5-11.2); Nucleated Red Blood Cells % 0.3 %/100WBC (0.0-0.8); Platelet Count 186 10^3/uL (150-450); Red Blood Count 4.54 10^6/uL (4.06-5.63); Red Cell Distribution Width 19.1 % (12-17); White Blood Count 5.4 10^3/uL (3.6-10.2)
[2024-03-15 10:43] LABS: Urine Appearance Turbid; Urine Bacteria Absent /HPF (Absent); Urine Bilirubin Negative (Negative); Urine Blood 2+ (Negative); Urine Color Yellow; Urine Glucose 4+ (>=1000 mg/dL) (Negative); Urine Ketones Negative (Negative); Urine Nitrite Negative (Negative); Urine Protein 1+ (>=30 mg/dL) (Negative); Urine Red Blood Cell 1+(3-5/hpf) /HPF (0-Trace); Urine Sperm Present /HPF (Absent); Urine Squamous Epithelial Cell Present /HPF (Absent); Urine Urobilinogen Negative (Negative); Urine White Blood Cell 1+(6-10/hpf) /HPF (0-Trace)
[2024-03-15 11:01] LABS: High Sensitivity Troponin 1 Hr 10928 pg/mL (<20)
[2024-03-15] MEDS: Furosemide 40 mg/4 ml IV VIAL IV SLOW PU ONE (11:58)
[2024-03-15] MEDS ORDERED: Albuterol/Ipratropium NEB.SOL (2.5/0.5 MG) 3 ML NEB.SOLN INH PRN (12:43)
[2024-03-15] MEDS ORDERED: Sulfur Hexaflouride MICROSPHR 25 MG VIAL IV PRN (12:57)
[2024-03-15] MEDS: Azithromycin 500 mg/250 ml NS 500 MG/250 ML BAG IVPB SCH (13:41)
[2024-03-15] MEDS ORDERED: Dextrose 50% Syringe 50 ml 25 GM/50 ML SYRINGE IV PUSH PRN (13:52)
[2024-03-15] MEDS ORDERED: Enoxaparin 40 MG/0.4 ML SYR SUBCUT SCH (14:00)
[2024-03-15 14:20] LABS: HDL Cholesterol 10.7 mg/dL
[2024-03-15] MEDS: Enoxaparin 30 MG/0.3 ML SYR SUBCUT SCH (14:28)
[2024-03-15] MEDS: cefTRIAXone 1 gm/50 mL D5W 1 GM/50 ML BAG IV SCH (15:46)
[2024-03-15] MEDS: Morphine 4 MG/ML VIAL (1 ml) IV PRN (18:25)
[2024-03-15] MEDS ORDERED: Atropine 1% (ORAL/SL) 15 ML BTL SL PRN (18:31)
[2024-03-15] MEDS ORDERED: Ondansetron ODT 4 mg TAB 4 MG TAB SL PRN (18:31)
[2024-03-15] MEDS ORDERED: Lorazepam PYXIS KEY PRN (19:17)
[2024-03-15] MEDS: LORazepam 2 mg VIAL 1 ml IV PUSH PRN (19:19)
[2024-03-15] MEDS: LORazepam 2 mg VIAL 1 ml ONE ×2 (19:36)
[2024-03-15] MEDS: Morphine 4 MG/ML VIAL (1 ml) IV SCH (20:17)
[2024-03-15 20:23] VITALS: BP 94/51
[2024-03-16] MEDS: Morphine 4 MG/ML VIAL (1 ml) IV PRN (00:29)
== END 2024-03-16 01:23 | disposition expired | DRG 871 ==
LOC: ED 08:44 → EDHOLD 11:54 → ICU 12:03
PROVIDERS: ADMIT Internal Medicine Pulmonary Disease; ATTEND Internal Medicine